=== PATIENT | female | born 1975 | race African-American/Black ===

== ENCOUNTER → 2021-11-11 | Outpatient (CLI) | payer BC | END | disposition home or self-care (01) | LOC: LABPAT 14:10 | PROVIDERS: ATTEND Surgery Plastic and Reconstructive Surgery | DX: Z03.818 Encounter for observation for suspected exposure to other biological agents ruled out (principal) | CPT/HCPCS: U0003; C9803 ==

== ENCOUNTER → 2021-12-21 | Outpatient (CLI) | payer BC ==
[2021-12-21 14:59] LABS: HCT 38.2 % (37.2-46.3); HGB 12.3 g/dL (12.0-15.0); MCH 30.4 pg (27.0-32.0); MCHC 32.2 g/dL (32.0-37.0); MCV 94.3 fL (80.0-97.0); Mean Platelet Volume 10.3 fL (9.5-12.2); NRBC Per 100 WBC 0 /100 WBCS (0.0-0.0); Platelet Count 283 X 10*3/uL (140-440); RBC 4.05 X 10*6/uL (4.10-5.20); RDW 13.6 % (11.5-14.5)
== END | disposition home or self-care (01) ==
LOC: LABPAT 10:27
PROVIDERS: ATTEND Surgery Plastic and Reconstructive Surgery
DX: Z01.812 Encounter for preprocedural laboratory examination (principal)
CPT/HCPCS: 36415; 84132; 85027; 93005

== ENCOUNTER 2021-12-23 05:49 | Day surgery (SDC) | payer BC ==
[2021-12-20 12:03] VITALS: BMI 31.6
[~2021-12-23 05:49] MED LIST: HEPARIN SODIUM,PORCINE/PF 5,000 UNIT/0.5 ML SYRINGE SQ PRN
[2021-12-23] MEDS ORDERED: MIDAZOLAM 2 MG/2 ML VIAL IV PRN (06:20)
[2021-12-23] MEDS ORDERED: DEXAMETHASONE SOD PHOSPHATE 4 MG/ML 1 ML VIAL IV ONE (06:20)
[2021-12-23] MEDS ORDERED: ONDANSETRON 4 MG/2 ML VIAL IVP ONE (06:20)
[2021-12-23] MEDS ORDERED: SCOPOLAMINE 1.5MG/72HR PATCH TRANSDERM ONE (06:20)
[2021-12-23] MEDS: LACTATED RINGERS 1,000 ML IV SCH ×2 (06:44→07:34)
[2021-12-23] MEDS ORDERED: LIDOCAINE 1% (10MG/ML) FOR IV START INTRADERMA ONE (06:45)
[2021-12-23] MEDS ORDERED: ACETAMINOPHEN TAB 500 MG TAB PO STA (06:49)
[2021-12-23] MEDS ORDERED: SCOPOLAMINE 1.5MG/72HR PATCH TRANSDERM STA (06:49)
[2021-12-23] MEDS ORDERED: GABAPENTIN 300 MG CAP PO STA (06:49)
[2021-12-23] MEDS ORDERED: MELOXICAM 7.5 MG TAB PO STA (06:52)
--- NOTE | 2021-12-23 06:52 | P.GSHP ---
History of Present Illness H&P Date: 12/23/21 CHIEF COMPLAINT: History of intra-abdominal adhesions HISTORY OF PRESENT ILLNESS: The patient is a 46-year-old female who presents with history of intra-abdominal adhesions from multiple prior surgeries including increasing abdominal pain. She now presents for diagnostic laparoscopy including lysis of adhesions. PAST MEDICAL HISTORY: Please see list. PAST SURGICAL HISTORY: Please see list. MEDICATIONS: Please see list. ALLERGIES: Please see list. SOCIAL HISTORY: No illicit drug use FAMILY HISTORY: No reports of Crohn disease or ulcerative colitis. REVIEW OF ORGAN SYSTEMS: CONSTITUTIONAL: No reports of fevers or chills. PHYSICAL EXAM: VITAL SIGNS: Stable GENERAL: Well-developed pleasant and in no acute distress. HEENT: No scleral icterus. Extraocular movements grossly intact. Moist buccal mucosa. NECK: Supple without lymphadenopathy. CHEST: Unlabored respirations. Equal bilateral excursions. CARDIOVASCULAR: Regular rate and rhythm. Distal 2+ pulses. ABDOMEN: Soft, tender right upper quadrant. No peritonitis. MUSCULOSKELETAL: No clubbing, cyanosis, or edema. ASSESSMENT: 1. Right upper quadrant abdominal pain. 2. History of multiple abdominal surgeries. 3. Intra-abdominal adhesions. PLAN: 1. Robotic lysis of adhesions were described in detail including risk of injury to the intestine, need for further surgery, and open technique. 2. DVT prophylaxis. 3. Antibiotic prophylaxis. Past Medical History Past Medical History: Asthma, Hypertension Additional Past Medical History / Comment(s): POST PROCEDURE ADHESIONS AND INFECTION-1998 History of Any Multi-Drug Resistant Organisms: None Reported Past Surgical History: Appendectomy, Breast Surgery, Hysterectomy, Tonsillectomy Additional Past Surgical History / Comment(s): BLADDER SLING. RT ANKLE TENDON REPAIR. RT BREAST BX-BENIGN. COLONOSCOPY/EGD-11/29/21 Past Anesthesia/Blood Transfusion Reactions: No Reported Reaction Smoking Status: Former smoker - Past Family History Father Family Medical History: Cancer Medications and Allergies Home Medications Medication Instructions Recorded Confirmed Type Albuterol Inhaler [Ventolin Hfa 1 puff INHALATION DIRECTED PRN 11/10/21 12/23/21 History Inhaler] Budesonide/Formoterol Fumarate 1 puff INHALATION BID 11/10/21 12/23/21 History [Symbicort 160-4.5 Mcg Inhaler] Cholecalciferol [Vitamin D3 (125 125 mcg PO DAILY 11/10/21 12/23/21 History Mcg = 5000 Iu)] Hydrochlorothiazide 12.5 mg PO DAILY 11/10/21 12/23/21 History [hydroCHLOROthiazide] Multivit with Calcium,Iron,Min 1 each PO DAILY 11/10/21 12/23/21 History [Women's Multivitamin] Mv-Mn/C/Glutamin/Lysin/[id number] 1 tablet PO DAILY 11/10/21 12/23/21 History [Airborne Gummies] Seamoss/Bladerwrack 1 tab PO DAILY 11/10/21 12/23/21 History Allergies Allergy/AdvReac Type Severity Reaction Status Date / Time Fish Containing Products Allergy Anaphylaxis Verified 12/23/21 06:21 [Fish] flu vaccine Allergy Rash/Hives Uncoded 12/23/21 06:21 ivp dye Allergy Anaphylaxis Uncoded 12/23/21 06:21 tb test Allergy Rash/Hives Uncoded 12/23/21 06:21 Surgical - Exam Vital Signs Temp Pulse Resp BP Pulse Ox 97.4 F L 74 18 128/75 100 12/23/21 06:27 12/23/21 06:27 12/23/21 06:27 12/23/21 06:27 12/23/21 06:27
[2021-12-23] MEDS ORDERED: HYDROmorphone 0.5 MG/0.5 ML SYRINGE IVP PRN (07:00)
[2021-12-23] MEDS ORDERED: fentaNYL (PF) 50 MCG/ML 2 ML AMP IVP ONE (07:05)
[2021-12-23] MEDS ORDERED: ROPIVACAINE 5 MG/ML 30 ML VIAL ONE (07:34)
[2021-12-23] MEDS ORDERED: SODIUM CHLORIDE 0.9% (PF) 10 ML VIAL ONE (07:34)
[2021-12-23] MEDS ORDERED: GLYCOPYRROLATE 0.2 MG/ML 2 ML VIAL ONE (07:34)
[2021-12-23] MEDS ORDERED: LIDOCAINE 1% INJ 10MG/ML (20 ML MDV) ONE (07:34)
[2021-12-23] MEDS ORDERED: SUCCINYLCHOLINE CHLORIDE 100 MG/5 ML SYR IV ONE (07:34)
[2021-12-23] MEDS ORDERED: ROCURONIUM 10 MG/ML (5 ML VIAL) IV ONE (07:34)
[2021-12-23] MEDS ORDERED: HYDROmorphone (PF) 1 MG/ML ONE (07:34)
[2021-12-23] MEDS ORDERED: NEOSTIGMINE 1 MG/ML 10 ML VIAL ONE (07:34)
[2021-12-23] MEDS ORDERED: MIDAZOLAM 2 MG/2 ML VIAL ONE (07:34)
[2021-12-23] MEDS ORDERED: fentaNYL (PF) 50 MCG/ML 2 ML AMP ONE (07:34)
[2021-12-23] MEDS ORDERED: PROPOFOL 10 MG/ML 20 ML VIAL IV ONE (07:34)
[2021-12-23] MEDS ORDERED: BUPIVACAIN-EPI 0.25%-1:200,000 30 ML VIAL SQ ONE (07:59)
--- NOTE | 2021-12-23 08:21 | P.ANPRN ---
Procedure Note - Anesthesia - Nerve Block Performed Bilateral Erector Spinae Time Out Performed: Yes (07:04) Date of Procedure: 12/23/21 Procedure Start Time: : Procedure Stop Time: :14 Location of Patient: PreOp Indication: Acute Post-Operative Pain, Requested by Surgeon (Dr Melchor) Sedation Type: Sedate with meaningful contact maintained Preparation: Sterile Prep Position: Prone Catheter: None Needle Types: Pajunk Needle Gauge: 21 Ultrasound used to visualize needle placement: Yes Ultrasound used to observe medication spread: Yes Injectate: 0.5% Ropivacaine (see comment for volume) (15cc + 10cc PF Normal saline each side) Blood Aspirated: No Pain Paresthesia on Injection Noted: No Resistance on Injection: Normal
[2021-12-23 09:11] VITALS: TEMP 97.1
[2021-12-23] MEDS ORDERED: FAMOTIDINE 20 MG/2 ML VIAL IVP ONE (09:32)
[2021-12-23 09:48] VITALS: RESP 16
[2021-12-23] MEDS ORDERED: LACTATED RINGERS 1,000 ML IV ONE ×2 (10:05)
[2021-12-23] MEDS ORDERED: oxyCODONE-APAP 7.5-325MG 1 EACH TAB PO PRN (10:22)
[2021-12-23] MEDS ORDERED: KETOROLAC 30 MG/ML 1 ML VIAL IVP PRN (10:22)
[2021-12-23] MEDS ORDERED: SIMETHICONE 80 MG CHEWABLE PO SCH (10:30)
--- NOTE | 2021-12-23 11:05 | P.OP ---
Date of Procedure: 12/23/21 Description of Procedure: SURGEON: RAND ALVAREZ MD PREOPERATIVE DIAGNOSES: 1. Right upper quadrant abdominal pain 2. Intermittent abdominal distention 3. History of prior abdominal surgeries 4. History of peritoneal adhesions 5. Gastroesophageal reflux disease 6. Obesity due to excess calories, BMI 32.5 7. Hypertension 8. Asthma POSTOPERATIVE DIAGNOSES: 1. Right upper quadrant abdominal pain 2. Intermittent abdominal distention 3. History of prior abdominal surgeries 4. History of peritoneal adhesions 5. Gastroesophageal reflux disease 6. Obesity due to excess calories, BMI 32.5 7. Hypertension 8. Asthma 9. Hydrosalpinx left fallopian tube 10. Right ovarian cysts, multiple 11. Internal hernia, right mid/lower quadrant 12. Small bowel volvulus OPERATION: 1. Robotic-assisted da Tylor Xi laparoscopic with lysis of adhesions ESTIMATED BLOOD LOSS: 5 mL. SPECIMENS REMOVED: None. COMPLICATIONS: None. OPERATIVE FINDINGS: 1. Adhesion along the base of cecum with internal hernia and concurrent small bowel volvulus 2. Left hydrosalpinx fallopian tube 3. Gallbladder with mildly thickened gallbladder wall and along the right upper lateral abdominal wall 4. Right ovarian cysts with small foci questionable for endometrial INDICATIONS: The patient is a 46-year-old female who presents with moderate right upper quadrant abdominal pain including diffuse abdominal pain and intermittent abdominal distention. Surgical intervention with diagnostic la paroscopy, lysis of adhesions were described. Informed consent was obtained. Robotic assisted laparoscopic approach was described. Benefits and risks of the procedure including but not limited to bleeding, infection was described. Informed consent was obtained. DESCRIPTION OF PROCEDURE: Patient was brought to the operating room, placed in supine position. After general induction, the abdomen had been prepped and draped in standard sterile fashion. The robotic da Tylor XI system was primed. After a timeout protocol was performed, the patient had been prepped and draped in standard sterile fashion. The robot was docked along the left lateral abdomen. Please note prior to docking of the robot; however, a 5 mm 0 degrees laparoscopic trocar entry was performed along the left upper quadrant. Next, three 8 mm robotic ports were placed along the left lateral abdominal wall. The camera 8-mm port was maintained along the epigastrium. Please note that the ports were placed at least 10 to 15 cm away from the target anatomy. Instruments including graspers and scissors with cautery were interchanged by the information services assistant. I had sat at the console. The small bowel was investigated starting from the base of the cecum to the terminal ileum and proximal to the ligament of Treitz. At the base of the cecum, staple evidence of appendectomy was found with adhesions to the retroper itoneum. Approximately just distal to the ligament of Treitz, internal hernia was identified of the small bowel with small bowel volvulus. The internal hernia was reduced including small bowel volvulus. Adhesions were confirmed with the internal hernia at the right lower quadrant. Lysis of adhesions was performed. Attention was brought to the pelvis where the left fallopian tube was moderately dilated and cystic consistent with left hydrosalpinx. The right ovary had cystic lesions with small foci of endometriosis. At the right upper quadrant, the gallbladder was investigated without moderate scarring. The gallbladder wall was mildly thickened. The gallbladder was found along the right upper lateral abdominal wall. Final inspection of the small bowel from the ligament of Treitz distally to the cecum was performed confirming complete reduction of internal hernias and small bowel volvulus. The robot was undocked. All pneumoperitoneum and instruments were evacuated from the abdominal cavity. The incisions were reapproximated using 4-0 Monocryl in an interrupted subcuticular fashion. Please note along the trocar sites, local anesthetic was placed as a field block prior to insertion of all instruments. Exofin was applied to the skin. At the end of the procedure needle, sponge, and instrument count had been verified correct by the surgical oncologist. The patient was transferred to postanesthesia care unit in stable condition. Plan - Discharge Summary Discharge Rx Participant: Yes New Discharge Prescriptions: New Acetaminophen Tab [Tylenol Tab] 1,000 mg PO Q6HR PRN #30 tablet PRN Reason: Pain Simethicone [Gas-X] 125 mg PO AC-TID PRN #20 capsule PRN Reason: Pain Ibuprofen [Motrin] 600 mg PO Q8HR PRN #30 tab PRN Reason: Pain Continue Albuterol Inhaler [Ventolin Hfa Inhaler] 1 puff INHALATION DIRECTED PRN PRN Reason: Asthma Seamoss/Bladerwrack 1 tab PO DAILY Mv-Mn/C/Glutamin/Lysin/[id number] [Airborne Gummies] 1 tablet PO DAILY Multivit with Calcium,Iron,Min [Women's Multivitamin] 1 each PO DAILY Hydrochlorothiazide [hydroCHLOROthiazide] 12.5 mg PO DAILY Cholecalciferol [Vitamin D3 (125 Mcg = 5000 Iu)] 125 mcg PO DAILY Budesonide/Formoterol Fumarate [Symbicort 160-4.5 Mcg Inhaler] 1 puff INHALATION BID Discharge Medication List Albuterol Inhaler [Ventolin Hfa Inhaler] 1 puff INHALATION DIRECTED PRN 11/10/21 [History] Budesonide/Formoterol Fumarate [Symbicort 160-4.5 Mcg Inhaler] 1 puff INHALATION BID 11/10/21 [History] Cholecalciferol [Vitamin D3 (125 Mcg = 5000 Iu)] 125 mcg PO DAILY 11/10/21 [History] Hydrochlorothiazide [hydroCHLOROthiazide] 12.5 mg PO DAILY 11/10/21 [History] Multivit with Calcium,Iron,Min [Women's Multivitamin] 1 each PO DAILY 11/10/21 [History] Mv-Mn/C/Glutamin/Lysin/[id number] [Airborne Gummies] 1 tablet PO DAILY 11/10/21 [History] Seamoss/Bladerwrack 1 tab PO DAILY 11/10/21 [History] Acetaminophen Tab [Tylenol Tab] 1,000 mg PO Q6HR PRN #30 tablet 12/23/21 [Rx] Ibuprofen [Motrin] 600 mg PO Q8HR PRN #30 tab 12/23/21 [Rx] Simethicone [Gas-X] 125 mg PO AC-TID PRN #20 capsule 12/23/21 [Rx] Follow up Appointment(s)/Referral(s): Rand Alvarez MD [STAFF PHYSICIAN] - 12/27/21 (Telehealth) Patient Instructions/Handouts: *Surgery [facility] - (Anesthesia) Discharge Instructions Outpatient Surgery, Lysis of Abdominal Adhesions (DC) Activity/Diet/Wound Care/Special Instructions: Recommend low-fat diet for the next 2 days. No lifting over 10 pounds in 2 weeks until January 06. May shower. No bath tub soaks for two weeks until January 06. Diet as tolerated. Use Tylenol, simethicone and ibuprofen or Aleve scheduled for the next 24-48 hours for best pain relief. Use ice along incisions for today to prevent swelling. Discharge Disposition: HOME SELF-CARE
[2021-12-23 11:47] VITALS: BP 139/84; PULSE 68
== END 2021-12-23 11:45 | disposition home or self-care (01) ==
LOC: OR 05:49
PROVIDERS: ATTEND Surgery Plastic and Reconstructive Surgery
DX: K66.0 Peritoneal adhesions (postprocedural) (postinfection) (principal); K21.9 Gastro-esophageal reflux disease without esophagitis; I10 Essential (primary) hypertension; J45.909 Unspecified asthma, uncomplicated; E66.9 Obesity, unspecified; Z68.32 Body mass index [BMI] 32.0-32.9, adult; K56.2 Volvulus; K46.9 Unspecified abdominal hernia without obstruction or gangrene; N70.11 Chronic salpingitis
CPT/HCPCS: 44180; 64999; J2250; J1100; J2710; J0690; J2405; J2001; J3010; J1885; J1170 ×2; J2795; J0330; J2704; J1644

== ENCOUNTER → 2022-06-08 | Outpatient (CLI) | payer BC ==
--- NOTE | 2022-06-08 12:37 | XR ---
EXAMINATION TYPE: XR KUB DATE OF EXAM: 06/08/2022 Comparison: None Clinical History: 47-year-old female right-sided abdominal and flank pain, history of kidney stones. Findings: Small pelvic phleboliths. There appears to be some curvilinear density at the right mid to lower abdo men, likely surgical material from prior bowel surgery. Suggestion of left-sided renal calculi measur ing up to 7 mm. Bowel content partially obscures the renal shadows. Nonobstructive bowel gas pattern. Mild scattered stool. Impression: Suspect some surgical material at the right lower quadrant. A couple left-sided renal calculi measuri ng up to 7 mm. Bowel content largely obscures the renal shadows.
== END | disposition home or self-care (01) ==
LOC: RADXRMAIN 12:05
PROVIDERS: ATTEND Urology
DX: N23 Unspecified renal colic (principal)
CPT/HCPCS: 74018

== ENCOUNTER → 2022-07-19 | Outpatient (CLI) | payer BC ==
[2022-07-19 14:26] LABS: Appearance,Urine Cloudy (Clear); Bilirubin,Urine Negative (Negative); Blood,Urine Negative (Negative); Color,Urine Yellow; Glucose,Urine (UA) Negative (Negative); Ketones,Urine 1+ (Negative); Leukocyte Esterase,Urine Negative (Negative); Mucus,Urine Occasional /hpf; Nitrite,Urine Negative (Negative); PH, Urine 5.5 (5.0-8.0); Protein,Urine Trace (Negative); RBC,Urine 9 /hpf (0-5); Specific Gravity,Urine 1.022 (1.001-1.035); Squamous Epithelial Cell,Urine 21 /hpf (0-4); Urobilinogen,Urine <2.0 mg/dL (<2.0); WBC,Urine 2 /hpf (0-5)
[2022-07-19 18:02] LABS: Basophils # (A) 0.04 X 10*3/uL (0.00-0.10); Basophils % (A) 0.7 %; Eosinophils # (A) 0.15 X 10*3/uL (0.04-0.35); Eosinophils % (A) 2.7 %; HCT 40.3 % (37.2-46.3); Immature Grans, Automated 0.2 %; Lymphocytes # (A) 2.55 X 10*3/uL (0.90-5.00); Lymphocytes % (A) 46.7 %; MCH 29.6 pg (27.0-32.0); MCHC 32.3 g/dL (32.0-37.0); MCV 91.8 fL (80.0-97.0); Mean Platelet Volume 10.3 fL (9.5-12.2); Monocytes # (A) 0.33 X 10*3/uL (0.20-1.00); NRBC Per 100 WBC 0 /100 WBCS (0.0-0.0); Neutrophils # (A) 2.38 X 10*3/uL (1.80-7.70); Neutrophils % (A) 43.7 %; Platelet Count 275 X 10*3/uL (140-440); RBC 4.39 X 10*6/uL (4.10-5.20); RDW 12.9 % (11.5-14.5); WBC 5.46 X 10*3/uL (4.50-10.00)
[2022-07-19 18:33] LABS: ALT 11 U/L (8-44); AST 14 U/L (13-35); African American GFR (CKD) 88.6 (60.0-200.0); Albumin 4.4 g/dL (3.8-4.9); Albumin/Globulin Ratio 2.09 (1.60-3.17); Alkaline Phosphatase 80 U/L (41-126); BUN/Creat Ratio 16.39 Ratio (12.00-20.00); Blood Urea Nitrogen 14.7 mg/dL (9.0-27.0); Calcium 9.3 mg/dL (8.7-10.3); Carbon Dioxide 21.8 mmol/L (20.0-27.5); Chloride 105 mmol/L (96-109); Chol/HDL Ratio 4.09 Ratio; Globulin 2.1 g/dL (1.6-3.3); Glucose 77 mg/dL (70-110); LDL Cholesterol,Calculated 158.8 mg/dL (0.0-131.0); Non-African American GFR(CKD) 76.5 (60.0-200.0); Potassium 4.3 mmol/L (3.5-5.5); Sodium 136 mmol/L (135-145); Total Protein 6.5 g/dL (6.2-8.2); VLDL Calculation 17.26 mg/dL (5.00-40.00)
[2022-07-19 19:45] LABS: Cancer Antigen 125 7.8 U/mL (0.0-30.1)
== END | disposition home or self-care (01) ==
LOC: LABWHC1 11:38
DX: Z00.00 Encounter for general adult medical examination without abnormal findings (principal); N83.202 Unspecified ovarian cyst, left side; E55.9 Vitamin D deficiency, unspecified
CPT/HCPCS: 36415; 80053; 80061; 81001; 82306; 82607; 82746; 83036; 84443; 85025; 86304

== ENCOUNTER → 2023-11-22 | Outpatient (CLI) | payer BC, OTHER | END | disposition home or self-care (01) | LOC: LABWHC1 15:42 | PROVIDERS: ATTEND Internal Medicine | DX: Z11.1 Encounter for screening for respiratory tuberculosis (principal) | CPT/HCPCS: 36415; 86480 ==

== ENCOUNTER → 2025-03-03 | Outpatient (CLI) | payer OTHER | END | disposition home or self-care (01) | LOC: LABWHC1 15:15 | PROVIDERS: ATTEND Urology | DX: Z00.00 Encounter for general adult medical examination without abnormal findings (principal) | CPT/HCPCS: 36415; 86480 ==